=== PATIENT | female | born 1990 | race Caucasian/White ===

== ENCOUNTER 2017-04-10 11:18 | Emergency (ER) | payer BC, OTHER ==
[~2017-04-10] VITALS: Ht 160 cm; Wt 59.6 kg
[2017-04-10 11:26] VITALS: Ht 160 cm; Wt 59.6 kg
[2017-04-10 11:55] LABS: BASO % 0.2 %; BASO ABS # 0.04 K/uL (0-0.2); COMPLETE YES; EOS % 0.2 %; IG% 0.3 %; LYMPH % 4.9 %; LYMPH ABS # 0.97 K/uL (1.2-3.4); MEAN CELL VOLUME 90.9 fL (80-100); MEAN CORPUSCULAR HGB CONC 35.2 g/dl (32-36); MEAN PLATELET VOLUME 10.4 fL (7.4-10.4); MONO % 5.5 %; NEUT % 88.9 %; PLATELET COUNT 202 K/uL (130-400); RED BLOOD COUNT 4.62 M/uL (4.2-5.4); WHITE BLOOD COUNT 19.78 K/uL (4.8-10.8)
--- NOTE | 2017-04-10 12:04 | EMERGENCY ROOM VISIT NOTE ---
History Report prepared by Laverne: Amina Negron Under the Supervision of: Dr. Niya Crouch M.D. First contact with patient: 11:51 Chief Complaint: ILLNESS Stated Complaint: CLOSED THROAT, FREEZING, SWEATING, NUMB RT THIGH History of Present Illness The patient is a 26 year old female who presents to the Emergency Room with complaints of a worsening sore throat beginning last night around 6pm. The patient states that her throat feels closed and she has pain when swallowing. The patient notes she then developed muscle aches and cramps. She did have two episodes of vomiting last night. She notes a subjective fever. The patient is experiencing chills and sweating. She notes she fluctuates between feeling hot and cold. She notes shortness of breath and tingling to her right thigh. The patient denies cough, nausea, diarrhea or chance of . She does note her period began last night. Source of History: patient Onset: last night around 6pm Position: throat Quality: other (sore) Timing: worsening Associated Symptoms: + fevers (subjective), + chills, + SOB, + vomiting, No cough, No nausea, No diarrhea Review of Systems See HPI for pertinent positives & negatives. A total of 10 systems reviewed and were otherwise negative. Past Medical & Surgical Medical Problems: (1) No known health problems Family History Diabetes mellitus Hypertension Social History Smoking Status: Never Smoker Smokeless Tobacco Use: No Alcohol Use: none Marital Status: single Housing Status: lives with family Occupation Status: employed Current/Historical Medications Scheduled Cefdinir (Omnicef), 300 MG PO Q12H Allergies Coded Allergies: Penicillins (Unverified Allergy, Unknown, HIVES, 04/10/17) Physical Exam Vital Signs Date Time Temp Pulse Resp B/P (MAP) Pulse Ox O2 Delivery O2 Flow Rate FiO2 04/10/17 13:50 37.8 97 18 95/52 99 04/10/17 13:11 37.9 97 18 91/46 98 04/10/17 11:26 38.0 111 22 112/69 99 Room Air Physical Exam Vital signs reviewed. General: Well-appearing female, in no significant distress. HEENT: No scleral icterus, PERRLA, neck supple. Tonsillar hypertrophy with exudate and erythema in the posterior oral pharynx. Atraumatic. Cardiovascular: Regular rate and rhythm, no extra sounds. Pulmonary: Clear to auscultation bilaterally, normal work of breathing. Abdomen: Soft, nontender, nondistended, positive bowel sounds. Musculoskeletal: Atraumatic, no peripheral edema. Neurologic: Patient awake alert and oriented x 3, full strength in all 4 extremities. Cranial nerves 2 through 12 grossly intact. Skin: Warm, dry, no rash Medical Decision & Procedures Laboratory Results 04/10/17 11:40 Red Blood Count 4.62, Mean Corpuscular Volume 90.9, Mean Corpuscular Hemoglobin 32.0, Mean Corpuscular Hemoglobin Concent 35.2, Mean Platelet Volume 10.4, Neutrophils (%) (Auto) 88.9, Lymphocytes (%) (Auto) 4.9, Monocytes (%) (Auto) 5.5, Eosinophils (%) (Auto) 0.2, Basophils (%) (Auto) 0.2, Neutrophils # (Auto) 17.60, Lymphocytes # (Auto) 0.97, Monocytes # (Auto) 1.08, Eosinophils # (Auto) 0.03, Basophils # (Auto) 0.04 04/10/17 11:40 Test 04/10/17 11:40 White Blood Count 19.78 K/uL (4.8-10.8) Red Blood Count 4.62 M/uL (4.2-5.4) Hemoglobin 14.8 g/dL (12.0-16.0) Hematocrit 42.0 % (37-47) Mean Corpuscular Volume 90.9 fL (80-100) Mean Corpuscular Hemoglobin 32.0 pg (25-34) Mean Corpuscular Hemoglobin Concent 35.2 g/dl (32-36) Platelet Count 202 K/uL (130-400) Mean Platelet Volume 10.4 fL (7.4-10.4) Neutrophils (%) (Auto) 88.9 % Lymphocytes (%) (Auto) 4.9 % Monocytes (%) (Auto) 5.5 % Eosinophils (%) (Auto) 0.2 % Basophils (%) (Auto) 0.2 % Neutrophils # (Auto) 17.60 K/uL (1.4-6.5) Lymphocytes # (Auto) 0.97 K/uL (1.2-3.4) Monocytes # (Auto) 1.08 K/uL (0.11-0.59) Eosinophils # (Auto) 0.03 K/uL (0-0.5) Basophils # (Auto) 0.04 K/uL (0-0.2) RDW Standard Deviation 42.5 fL (36.4-46.3) RDW Coefficient of Variation 12.9 % (11.5-14.5) Immature Granulocyte % (Auto) 0.3 % Immature Granulocyte # (Auto) 0.06 K/uL (0.00-0.02) Anion Gap 8.0 mmol/L (3-11) Est Creatinine Clear Calc Drug Dose 71.8 ml/min Estimated GFR () 91.8 Estimated GFR (Non- 79.2 BUN/Creatinine Ratio 8.5 (10-20) Calcium Level 8.4 mg/dl (8.5-10.1) Total Bilirubin 0.7 mg/dl (0.2-1) Aspartate Amino Transf (AST/SGOT) 12 U/L (15-37) Alanine Aminotransferase (ALT/SGPT) 20 U/L (12-78) Alkaline Phosphatase 54 U/L (45-117) Total Protein 7.3 gm/dl (6.4-8.2) Albumin 3.6 gm/dl (3.4-5.0) Globulin 3.7 gm/dl (2.5-4.0) Albumin/Globulin Ratio 1.0 (0.9-2) Laboratory results per my review. Medications Administered Medications (Trade) Dose Ordered Sig/Cece Route Start Time Stop Time Status Last Admin Dose Admin Sodium Chloride 1,000 ml @ 999 mls/hr Q1H1M STAT IV 04/10/17 12:12 04/10/17 13:12 DC 04/10/17 12:45 999 MLS/HR Ketorolac Tromethamine (Toradol Inj) 30 mg NOW STAT IV 04/10/17 12:12 04/10/17 12:15 DC 04/10/17 12:47 30 MG Cefdinir (Omnicef Cap) 300 mg ONE STAT PO 04/10/17 12:14 04/10/17 12:15 DC 04/10/17 12:48 300 MG ED Course 1156: Past medical records reviewed. The patient was evaluated in room B6. A complete history and physical examination was performed. 1212: Toradol Inj 30 mg IV, Sodium Chloride 1,000 ml @ 999 mls/hr IV, Omnicef Cap 300 mg PO. 1338: I discussed the patient's test results with her. 1346: Upon reevaluation, the patient appeared to have improvement of her symptoms. I discussed findings with the patient. She verbalized agreement of the treatment plan. She was discharged home. Medical Decision The patient is a 26 year old female who presents to the ED with complaints of a sore throat. Differentials include viral syndrome, tonsillitis, streptococcal pharyngitis, mononucleosis, peritonsillar abscess, retropharyngeal abscess, otitis, pneumonia, influenza, as well as others were entertained. Medication Reconciliation: I attest that I have personally reviewed the patient' s current medication list. Blood Pressure Screening: Patient was found to have normal blood pressure on screening and does not require follow-up. This patient was evaluated and appeared to be in no significant distress. IV access was obtained and laboratory work was drawn. Patient was placed on the ekg monitor tech and found to be in a sinus tachycardia. She was hydrated with normal saline solution and given IV Toradol. Rapid strep swab was obtained and is positive. Patient was given Omnicef 300 mg orally. She was given a prescription for a 10 day course of treatment. She was advised to monitor for a rash due to her penicillin allergy. She will follow-up with her primary care physician for reevaluation and return to the ER for worsening of symptoms or any medical concerns. Impression Primary Impression: Strep pharyngitis Scribe Attestation The scribe's documentation has been prepared under my direction and personally reviewed by me in its entirety. I confirm that the note above accurately reflects all work, treatment, procedures, and medical decision making performed by me. Departure Information Dispostion Home / Self-Care Prescriptions Cefdinir (Omnicef) 300 Mg Cap 300 MG PO Q12H for 10 Days, #19 CAP Prov: Niya Crouch M.D. 04/10/17 Referrals No Doctor, Assigned (PCP) Forms HOME CARE DOCUMENTATION FORM, IMPORTANT VISIT INFORMATION, WORK / SCHOOL INSTRUCTIONS Patient Instructions My [facility] Additional Instructions Diagnosis: Strep pharyngitis Omnicef 300 mg twice daily for 10 days. Drink plenty of clear fluids. Ibuprofen 600 mg every 6 hours as needed for pain or fever with food. Tylenol 650 mg every 6 hours as needed for pain or fever. Follow-up with your physician this week for reevaluation. Return to the ER for worsening of symptoms or any medical concerns.
[2017-04-10] MEDS ORDERED: KETOROLAC TROMETHAMINE 30 MG/ML VIAL IV STA (12:12)
[2017-04-10] MEDS ORDERED: SODIUM CHLORIDE 0.9% 1000ML 1,000 ML IV STA (12:12)
[2017-04-10 12:13] LABS: BUN/CREATININE RATIO 8.5 (10-20); CALCIUM 8.4 mg/dl (8.5-10.1); CREATININE 0.99 mg/dl (0.60-1.20); POTASSIUM 3.6 mmol/L (3.5-5.1)
[2017-04-10] MEDS ORDERED: CEFDINIR 300 MG CAP PO STA (12:14)
[2017-04-10] MEDS ORDERED: CEFD1CAP14 PO (13:23)
[2017-04-10 13:50] VITALS: BP 95/52; PULSE 97; TEMP 37.8; O2SAT 99
== END 2017-04-10 13:51 | disposition home or self-care (01) ==
LOC: C.EDB 11:20
DX: J02.0 Streptococcal pharyngitis (principal); Z83.3 Family history of diabetes mellitus; Z82.49 Family history of ischemic heart disease and other diseases of the circulatory system